=== PATIENT | male | born 1975 | race Caucasian/White ===

== ENCOUNTER 2018-11-20 15:42 | Emergency (ER) | payer OTHER ==
[~2018-11-20] VITALS: Ht 182.9 cm; Wt 167.8 kg
== END 2018-11-20 18:40 | disposition home or self-care (01) ==
LOC: ED 15:42
DX: S69.92XA Unspecified injury of left wrist, hand and finger(s), initial encounter (principal); F17.200 Nicotine dependence, unspecified, uncomplicated; Z90.89 Acquired absence of other organs; W23.0XXA Caught, crushed, jammed, or pinched between moving objects, initial encounter
CPT/HCPCS: 73130; 99283

== ENCOUNTER 2020-04-22 11:04 | Emergency (ER) | payer OTHER ==
[~2020-04-22] VITALS: Ht 182.9 cm; Wt 167.8 kg
--- OUTSIDE RECORDS SUMMARY | 2020-04-22 11:06 | XMS ---
PreManage Notification: [employer] Events No recent Security Events currently on file CRITERIA MET - [facility] - Has Care Guidelines CARE PROVIDERS There are no care providers on record at this time. Guidelines Source: [facility] [place] Guidelines Date: 10/13/2019 Care Coordination: Member is not currently enrolled in Mental Health Services through [facility] services. If services are needed through [facility] please call: Angel [phone] [facility]; [phone] Crisis [phone] [facility] VISIT COUNT (12 MO.) 1 [facility] TOTAL 1 NOTE: Visits indicate total known visits. ED/UCC VISIT TRACKING (12 MO.) 04/22/2020 11:04 [facility] OR TYPE: Emergency COMPLAINT: - L LOWER EXTREMITY PAIN INPATIENT VISIT TRACKING (12 MO.) No inpatient visits to display in this time frame [email or web address]
[2020-04-22] MEDS ORDERED: LEVOFLOXACIN500 MG PO (14:22)
== END 2020-04-22 14:28 | disposition home or self-care (01) ==
LOC: ED 11:04
DX: N45.1 Epididymitis (principal); F17.200 Nicotine dependence, unspecified, uncomplicated; F43.10 Post-traumatic stress disorder, unspecified
CPT/HCPCS: 76870; 81001; 87491; 87591; 99284-25

== ENCOUNTER 2022-05-11 22:18 | Emergency (ER) | payer OTHER ==
[~2022-05-11] VITALS: Ht 182.9 cm; Wt 167.8 kg
[~2022-05-11 22:18] MED LIST: LEVOFLOXACIN500 MG PO
[2022-05-11] MEDS ORDERED: CRUTCHES XX (23:05)
[2022-05-11] MEDS ORDERED: HYDROCODON-ACE1 EA10 PO (23:05)
== END 2022-05-11 23:28 | disposition home or self-care (01) ==
LOC: ED 22:18
DX: M25.561 Pain in right knee (principal); R58 Hemorrhage, not elsewhere classified; I10 Essential (primary) hypertension; F17.200 Nicotine dependence, unspecified, uncomplicated
CPT/HCPCS: 73560; 99283-25; A9270

== ENCOUNTER 2022-06-19 10:23 | Emergency (ER) | payer OTHER ==
[~2022-06-19] VITALS: Ht 182.9 cm; Wt 158.8 kg
[~2022-06-19 10:23] MED LIST changes: +CRUTCHES XX; +HYDROCODON-ACE1 EA10 PO
[2022-06-19] MEDS ORDERED: CLINDAMYCIN HC300 MG PO (12:07)
[2022-06-19] MEDS ORDERED: HYDROCODON-ACE1 EA10 PO (12:07)
== END 2022-06-19 12:17 | disposition home or self-care (01) ==
LOC: ED 10:23
DX: K04.7 Periapical abscess without sinus (principal); I10 Essential (primary) hypertension; F17.200 Nicotine dependence, unspecified, uncomplicated; Z79.899 Other long term (current) drug therapy
CPT/HCPCS: 99282